=== PATIENT | female | born 1980 | race Caucasian/White ===

== ENCOUNTER 2018-04-23 05:22 | Inpatient (IN) | payer BC ==
[2018-03-23 08:55] VITALS: BMI 36.0
[2018-04-07 10:20] VITALS: BMI 37.0
--- NOTE | 2018-04-07 10:38 | PAT Medication Instructions ---
Service Date Apr 07, 2018. Current Home Medication List Cetirizine (Zyrtec), 10 MG PO QAM Fluoxetine (Prozac), 40 MG PO QAM Montelukast Sodium (Montelukast Sodium), 1 TAB PO HS Medication Instructions For Your Scheduled Surgery - Take the following medications the morning of surgery with a sip of water: Fluoxetine (Prozac), 40 MG PO QAM - Take the following medications as scheduled the night before surgery: Montelukast Sodium (Montelukast Sodium), 1 TAB PO HS Cetirizine (Zyrtec), 10 MG PO QPM If you have any questions please call us at [phone] or [phone] or [phone]
[2018-04-07 11:15] LABS: BASO % 0.8 %; BASO ABS # 0.06 K/uL (0-0.2); EOS % 2.7 %; EOS ABS # 0.21 K/uL (0-0.5); HEMATOCRIT 44.7 % (37-47); HEMOGLOBIN 14.4 g/dL (12.0-16.0); IG# 0.01 K/uL (0.00-0.02); LYMPH % 31.6 %; LYMPH ABS # 2.43 K/uL (1.2-3.4); MEAN CORPUSCULAR HEMOGLOBIN 26.4 pg (25-34); MEAN CORPUSCULAR HGB CONC 32.2 g/dl (32-36); MEAN PLATELET VOLUME 10.3 fL (7.4-10.4); MONO % 4.4 %; MONO ABS # 0.34 K/uL (0.11-0.59); NEUT % 60.4 %; NEUT ABS # 4.65 K/uL (1.4-6.5); PLATELET COUNT 487 K/uL (130-400); RED CELL DISTRIBUTION WIDTH CV 14.4 % (11.5-14.5); RED CELL DISTRIBUTION WIDTH SD 42.6 fL (36.4-46.3)
[2018-04-07 11:31] LABS: PTT PATIENT 26.8 SECONDS (21.0-31.0)
[2018-04-07 12:18] LABS: HEMOGLOBIN A1C 5.4 % (4.5-5.6)
[~2018-04-23] VITALS: Ht 177.8 cm; Wt 118.5 kg
[2018-04-23] VITALS (13 sets, daily range): BP systolic 105–154; BP diastolic 64–98; PULSE 62–88; TEMP 36.4–37.5; O2SAT 96–99; Ht 177.8 cm; Wt 118.5 kg
[~2018-04-23 05:22] MED LIST: CETI10TA84 PO; FLUO40CA8 PO; MONT1TAB5 PO
[2018-04-23] MEDS ORDERED: METR500T PO (05:46)
[2018-04-23] MEDS ORDERED: LACTATED RINGER'S 1000ML 1,000 ML IV SCH ×2 (06:00)
[2018-04-23] MEDS ORDERED: GENTAMICIN IV SCH (06:00)
[2018-04-23] MEDS ORDERED: DEXTROSE 5% IV SCH (06:00)
[2018-04-23] MEDS ORDERED: CLINDAMYCIN 600 MG/54 ML D5W 50 ML IV SCH (06:00)
[2018-04-23] MEDS ORDERED: CLINDAMYCIN IV 900 MG in DEXTROSE 5% 50ML 44 ML IV SCH (06:00)
[2018-04-23] MEDS ORDERED: CTP/1 PO (06:19)
[2018-04-23] MEDS ORDERED: PROPOFOL IV EMULSION 10 MG/ML 20 ML VIAL ONE (06:38)
[2018-04-23] MEDS ORDERED: FENTANYL CITRATE INJ 50 MCG/1 ML 2 ML VIAL ONE (06:38)
[2018-04-23] MEDS ORDERED: ONDANSETRON INJ 2 MG/ML 2 ML VIAL ONE ×2 (06:38→09:51)
[2018-04-23] MEDS ORDERED: DEXAMETHASONE SOD INJ 4 MG/ML VIAL ONE (06:38)
[2018-04-23] MEDS ORDERED: NEOSTIGMINE METHYLSULFATE 5 MG/5 ML SYR ONE (06:38)
[2018-04-23] MEDS ORDERED: LIDOCAINE HCL 2% 2 ML VIAL (20MG/ML) ONE (06:38)
[2018-04-23] MEDS ORDERED: MIDAZOLAM HCL 1 MG/ML 2ML VIAL ONE (06:38)
[2018-04-23] MEDS ORDERED: GLYCOPYRROLATE INJ 0.2 MG/ML VIAL ONE (06:38)
--- NOTE | 2018-04-23 06:52 | History & Physical Bridge Note ---
H&P Re-Evaluation Bridge Note: I have examined the patient, reviewed the History & Physical and in the interval since the performance of the History & Physical I have noted the following changes of clinical significance: No changes noted Cleared by her PCP
[2018-04-23] MEDS ORDERED: LIDOCAINE/EPINEPHRINE 1% 20 ML VIAL ONE (07:31)
[2018-04-23] MEDS ORDERED: BACITRACIN OINT 15 GM TUBE ONE (09:06)
[2018-04-23] MEDS ORDERED: METHYLENE BLUE 0.5% 10 ML VIAL ONE (09:09)
[2018-04-23] MEDS ORDERED: ROCURONIUM BROMIDE 10 MG/ML 5 ML VIAL ONE (09:13)
[2018-04-23] MEDS ORDERED: NALOXONE HCL 0.4 MG/1 ML VIAL/CARP IV PRN (09:15)
[2018-04-23] MEDS ORDERED: FLUMAZENIL 0.1 MG/1 ML 10 ML VIAL IV PRN (09:15)
[2018-04-23] MEDS ORDERED: LABETALOL HCL IV 5 MG/ML 20ML IV PRN (09:15)
[2018-04-23] MEDS ORDERED: EpHEDrine SULFATE INJ 50 MG/ML AMP IV PRN (09:15)
[2018-04-23] MEDS ORDERED: ONDANSETRON INJ 2 MG/ML 2 ML VIAL IV PRN ×2 (09:15→09:30)
[2018-04-23] MEDS ORDERED: PROMETHAZINE HCL INJ 12.5 MG in SODIUM CHLORIDE 0.9% 50ML 50 ML IV PRN (09:15)
[2018-04-23] MEDS ORDERED: ATROPINE SULFATE 0.1 MG/ML 5ML SYR IV PRN (09:15)
--- NOTE | 2018-04-23 09:19 | [facility] Post Operative Brief Note ---
Immediate Operative Summary Operative Date Apr 23, 2018. Pre-Operative Diagnosis Heavy, Prolonged Periods Post-Operative Diagnosis Heavy, Prolonged Periods Procedure(s) Performed Exam Under Anesthesia, Transvaginal Hysterectomy, Cystoscopy, Left Salpingectomy, Dejesus Culdoplasty Surgeon Dr Mcintosh Banking Consultant Surgeon(s) Dr Moon Estimated Blood Loss 200 ml. Findings Consistent with Post-Op Diagnosis Fluids (cc crystalloids) 1700 ml LR Specimens UTERUS, CERVIX, LEFT FALLOPIAN TUBE Drains MARSH 100 ML Anesthesia Type General Complication(s) none Disposition Disposition: Recovery Room / PACU Overlapping Procedure I was present for: ENTIRE CASE
[2018-04-23] MEDS ORDERED: ACETAMINOPHEN IV 100 ML IV PRN (09:30)
[2018-04-23] MEDS ORDERED: MEPERIDINE HCL 50 MG/ML CARP IV PRN ×2 (09:30)
[2018-04-23] MEDS ORDERED: MAGNESIUM HYDROXIDE SUSP 30 ML UDC PO PRN (09:30)
[2018-04-23] MEDS ORDERED: PROMETHAZINE HCL INJ 25 MG in SODIUM CHLORIDE 0.9% 50ML 50 ML IV PRN (09:30)
[2018-04-23] MEDS ORDERED: BISACODYL 10 MG SUPP PR PRN (09:30)
[2018-04-23] MEDS ORDERED: SENNA 8.6 MG TAB PO PRN (09:30)
[2018-04-23] MEDS ORDERED: HYDROmorphone INJ 0.5 MG/0.5 ML SYR ONE ×2 (09:36→10:08)
[2018-04-23] MEDS: HYDROmorphone INJ 1 MG/ML SYR IV PRN ×2 (09:55→10:10)
[2018-04-23] MEDS ORDERED: GENTAMICIN CONSULT ACTIVE PRN (10:00)
[2018-04-23] MEDS ORDERED: ACETAMINOPHEN 1000 MG/100 ML IV IV ONE (10:07)
--- NOTE | 2018-04-23 10:38 | Anesthesiology Progress Note ---
Anesthesia Post Op Note Date & Time Apr 23, 2018 at 10:38 Vital Signs Pain Intensity: 2 Vital Signs Past 12 Hours Date Time Temp Pulse Resp B/P (MAP) Pulse Ox O2 Delivery O2 Flow Rate FiO2 04/23/18 10:25 36.7 74 15 135/96 96 Nasal Cannula 2 04/23/18 10:15 78 13 137/93 96 Nasal Cannula 2 04/23/18 10:05 99 15 121/84 96 Nasal Cannula 2 04/23/18 09:55 82 13 141/90 94 Nasal Cannula 2 04/23/18 09:45 81 13 138/83 94 Oxymask 5 04/23/18 09:35 84 16 122/94 92 Oxymask 5 04/23/18 09:28 36.8 85 16 146/91 97 Oxymask 5 04/23/18 05:59 36.7 88 16 132/97 (109) 98 Room Air Notes Mental Status: alert / awake / arousable, participated in evaluation Pt Amnestic to Procedure: Yes Nausea / Vomiting: adequately controlled Pain: adequately controlled Airway Patency, RR, SpO2: stable & adequate BP & HR: stable & adequate Hydration State: stable & adequate Anesthetic Complications: no major complications apparent
--- NOTE | 2018-04-23 11:14 | OPERATIVE REPORT ---
DATE OF OPERATION: 04/23/2018 PREOPERATIVE DIAGNOSES: Patient is a 37-year-old G2, P2-0-0-2 female with long history of heavy and prolonged menstrual bleeding, not responded to medical therapy as well as medicated IUD, declines endometrial ablation and desires hysterectomy. POSTOPERATIVE DIAGNOSES: Patient is a 37-year-old G2, P2-0-0-2 female with long history of heavy and prolonged menstrual bleeding, not responded to medical therapy as well as medicated IUD, declines ablation and desires hysterectomy. PROCEDURE: Exam under anesthesia, transvaginal hysterectomy, left salpingectomy, Dejesus culdoplasty and cystoscopy. SURGEON: Sarah Mcintosh MD. LOAD DROPPER: Dwayne Moon MD ESTIMATED BLOOD LOSS: 200 mL FLUIDS: 1700 mL of lactated ringer. DRAINS: Bland catheter drained 100 mL of urine. ANESTHESIA: General endotracheal, Dr. Le. COMPLICATIONS: None. FINDINGS: Exam under anesthesia revealed anteverted normal size uterus, nonpalpable adnexa and stage I-II uterine prolapse. DESCRIPTION OF PROCEDURE: The patient was taken to the operating room where general anesthesia was given without difficulty. She was placed in dorsal lithotomy position and prepared and draped in usual sterile fashion. Exam under anesthesia was done without findings. A Bland catheter was inserted into the bladder to drain during surgery and then the weighted speculum was placed in the patient's vagina. Cervix was visualized, grasped with single tooth tenaculum and cervix was injected with 1% lidocaine with epinephrine circumferentially and then the vaginal mucosa around the cervix was incised with the tip of Bovie and Sahu scissors circumferentially Then the vagina was dissected off from the cervix, digitally with the finger and a sponge on it. Then posterior cul-de-sac was identified, grasped with pickups and entered sharply with Metzenbaum scissors and the placement was confirmed digitally and a long weighted speculum was placed in the cul-de-sac and the rest of the extra tissues and vaginal mcuosa around the cervix was dissected off with Metzenbaum scissors and bluntly with the fingers and the sponge on it. The sacrouterine ligaments were identified bilaterally, grasped with Laina clamps, cut and suture ligated x2 on both sides with No:0 Vicryl. The cardinal ligaments were identified, grasped with Laina clamps, cut and suture ligated on both sides with 0 Vicryl and then bladder was dissected off bluntly with the tip fingers and the anterior cul -de-sac was entered without difficulty. The bladder was retracted with retractor. Uterine arteries were identified, grasped with Laina clamps, cut and suture ligated x2 on both sides and then the leafs of the broad ligaments were identified, grasped with handheld LigaSure device, coagulated 3 times and cut. We then continued on the side of the uterus till the cornua with handheld LigaSure device. Excellent hemostasis was achieved. Uterus and cervix was detached and removed from the patient's vagina and sent to pathology. The left ovary and fallopian tube were visible. The left fallopian tube was grasped with Laura clamps and excised with the handheld LigaSure device and sent to pathology and the rest of the vagina and the pedicles were hemostatic. We were not able to visualize the right fallopian tube neither right ovary. Unable to palpte digitally either. The omentum over the bowels were pushed back with a sponge on a stick. Patient was put on Trendelenburg position. We then proceeded with Dejesus suture, #1 Vicryl was placed from posterior vagina brought up into the middle of the cul-de-sac. This was sutured along the cul-de-sac peritoneum and till the right sacrouterine ligament. It was brought back to the middle of the cul-de-sac towards the left of the sacrouterine ligament and then it was brought back to the cul-de-sac and then came out from the vagina and mucosa next to the initial entry site and it was held with hemostat to be tied at the end of the surgery. Then the pedicles were again inspected to be hemostatic and the vaginal mucosa was grasped with Laura clamps. It was closed from left corner to the right in a running locked fashion and excellent hemostasis was achieved. Then we proceeded with a cystoscopy. The Bland catheter was removed. Cystoscopy was done. The bladder mucosa was inspected to be normal without any injury or nor bleeding and the right ureteral opening was visualized and ejecting yellow color urine. Then we looked for the left ureter, unable to find it. Patient has a history of left ureteral reimplantation as a child. I called the urology for recommendations. Right after I called him, we were able to see the second ureter which was superior and medial to the right ureter about 2 cm. So we were able to see 2 urethral openings, both ejecting urine. The I talked to Urologist and he was okay with the findings The cystoscopy was ended and the bladder was drained and placed in a new sterile catheter. The Dejesus suture in the posterior vagina mucosa was tied up in the vagina to elevate the vaginal cuff and it was cut. Then the vagina was packed with bacitracin-soaked vaginal packing and the procedure was ended. The patient tolerated the procedure well. Sponge, lap, needle count was correct x3. Patient was taken off from lithotomy position, extubated successfully and taken to PACU in stable condition. No complications happened. I was and Dr. Moon was present during whole procedure and patient was given gentamicin and clindamycin before procedure. I attest to the content of the Intraoperative Record and any orders documented therein. Any exceptions are noted below. TREMAINE
[2018-04-23] MEDS: IBUPROFEN 600 MG TAB PO PRN (13:53)
[2018-04-23] MEDS: GENTAMICIN IV SCH ×2 (13:56→21:53)
[2018-04-23] MEDS: DEXTROSE 5% IV SCH ×2 (13:56→21:53)
--- NOTE | 2018-04-23 14:52 | OB/GYN Progress Note ---
TOOL AND DIE SUPERVISOR Progress Note Date of Service: Apr 23, 2018. Postop check Patient is seen and examined Feels well, no complaints other than TSE She has h/o migraines and gets TSE if does not have her coffee Pain is under control with meds No CP/ SOB/ Dizziness/ N&V/ VB/ Leg pain Not OOB yet Tolerating clears Explained about the surgery and findings Date Time Temp Pulse Resp B/P (MAP) Pulse Ox O2 Delivery O2 Flow Rate FiO2 04/23/18 14:00 37.5 86 20 154/98 (116) 96 Room Air 04/23/18 13:00 36.8 85 20 147/97 (114) 96 Room Air 04/23/18 12:00 36.8 85 20 139/91 (107) 97 Nasal Cannula 1.0 04/23/18 11:30 36.8 78 18 131/93 (106) 98 Nasal Cannula 2.0 04/23/18 10:35 80 16 146/93 95 Nasal Cannula 2 04/23/18 10:25 36.7 74 15 135/96 96 Nasal Cannula 2 04/23/18 10:15 78 13 137/93 96 Nasal Cannula 2 04/23/18 10:05 99 15 121/84 96 Nasal Cannula 2 04/23/18 09:55 82 13 141/90 94 Nasal Cannula 2 04/23/18 09:45 81 13 138/83 94 Oxymask 5 04/23/18 09:35 84 16 122/94 92 Oxymask 5 04/23/18 09:28 36.8 85 16 146/91 97 Oxymask 5 04/23/18 05:59 36.7 88 16 132/97 (109) 98 Room Air 8-Hour Column 04/23/18 04/24/18 04/24/18 16:00 00:00 08:00 Intake Total 2603 ml Output Total 850 ml Balance 1753 ml 24-Hour Column 04/24/18 08:00 Intake Total 2603 ml Output Total 850 ml Balance 1753 ml PE: General: Alert, orientedx3, NAD CVS: S1S2 RRR Lungs: CTAB Abd: soft, NT, ND, BS+ No VB Ext: NT, no edema, SCD's on AP: 37 yo female s/p EUA, TVH, Left salpingectomy, Mc call culdeplasty, Cystoscopy , pod#0 HT, not on meds Will consult hospitalist Afebrile doing well Continue to routine postop care Encourage PO intake, may ambulate D/C lyon and packing in am Anticipate DC in am
[2018-04-23] MEDS ORDERED: AMLODIPINE BESYLATE 5 MG TAB PO PRN (15:45)
[2018-04-23] MEDS ORDERED: AMLODIPINE BESYLATE 5 MG TAB PO STA (15:56)
[2018-04-23] MEDS: CLINDAMYCIN IV 900 MG in DEXTROSE 5% 100ML 100 ML IV SCH ×2 (15:57→23:11)
[2018-04-23] MEDS ORDERED: CLONIDINE HCL 0.1 MG TAB PO PRN (16:00)
--- NOTE | 2018-04-23 16:56 | Medical Consult ---
Consultation Date of Consultation: Apr 23, 2018. Attending Physician: Canan. Mcintosh MD Reason for Consultation: HTN History of Present Illness This is a 37-year-old white female with significant past medical history of ADD , PCOS, diastolic dysfunction, history of migraine, history of TIA vs complex migraine who presents to [facility] secondary to elective transvaginal hysterectomy secondary to heavy uterine bleeding. Preoperatively patient was noted to have high blood pressure and continued postoperatively with blood pressure 154/98. She tolerate procedure well with EBL of 200ml. She follows Dr. Pabon in outpatient setting and over the past month has been noted to have elevated BP. She had ECG and echo for pre-operative clearance. ECG showed no acute abnormality and Echo revealed EF 60% with mild LVH. Prior to transvaginal hysterectomy she was treated with IUD and subsequent oral hormones in hope to lessen bleeding. This was felt to be cause of HTN and was discontinued. Also treated with Concerta for ADD in which this was discontinued as well. She denies any NSAID use, tobacco use. She used to drink occasional wine however ever since having elevated blood pressure she stopped alcohol use. Caffeine use is down to 1 cup of coffee a day prior it was 2-3. She tries to eat diet full of fruits and vegetables. Unfortunately over the past month she also broke her left foot in which she was in a cam boot; therefore her mobility has been limited as well as her cooking. She states they have been eating out a lot more frequently but does not add any added salt. Postoperatively had a headache and this was relieved with cup of caffeinated coffee. She denies fever , chills, sweats, lightheadedness, dizziness, change in hearing, change in vision, tinnitus, chest pain, palpitations, shortness of breath, nausea vomiting , diarrhea. In the past she was treated with clonidine for psychiatric issue in this because somnolence. Over the past month she has been monitoring her blood pressure in which systolically it has been ranging 140-150, diastolically 100. She denies any family history of cardiac disease, hypertension, hyperlipidemia, stroke. Her mother and father both alive, father suffers from glaucoma otherwise both are alive and well. Has 1 sister with psychiatric illness but no other medical problems. We have been asked to see patient in consultation for hypertension. Past Medical/Surgical History As per HPI Surgical Hx includes L ureteral re-implant at age 8 Had 2 children natural child Family History As per HPI Social History Smoking Status: Never Smoker Smokeless Tobacco Use: No Alcohol Use: Used to drink wine, has stopped for the past 1 month secondary to elevated blood pressure Drug Use: none Marital Status: Housing Status: lives with family Allergies Coded Allergies: Amoxicillin (Unverified Allergy, Unknown, ANAPHYLAXIS, 04/28/18) Current Inpatient Medications Current Inpatient Medications Medications (Trade) Dose Ordered Sig/Oscar Route Start Time Stop Time Status Last Admin Dose Admin Lactated Ringer's 1,000 ml @ 125 mls/hr Q8H IV 04/23/18 06:00 04/23/18 18:00 Gentamicin Sulfate 178 mg/ Dextrose 104.45 ml @ 100 mls/ hr PREOP IV 04/23/18 06:00 04/23/18 18:00 04/23/18 05:52 100 MLS/HR Clindamycin Phosphate 900 mg/ Dextrose 50 ml @ 100 mls/hr PREOP IV 04/23/18 06:00 04/23/18 18:00 04/23/18 07:00 100 MLS/HR Lactated Ringer's 1,000 ml @ 15 mls/hr Q24H IV 04/23/18 06:00 04/23/18 18:00 04/23/18 05:50 15 MLS/HR Meperidine HCl (Demerol Inj) 50 mg Q4H PRN IV 04/23/18 09:30 05/07/18 09:29 Meperidine HCl (Demerol Inj) 75 mg Q4H PRN IV 04/23/18 09:30 05/07/18 09:29 Oxycodone/ Acetaminophen (Percocet 5-325mg Tab) 1 tab for pain scale 1-5 2 t... Q4H PRN PO 04/23/18 09:30 05/07/18 09:29 Ibuprofen (Motrin Tab) 600 mg Q4H PRN PO 04/23/18 09:30 05/23/18 09:29 04/23/18 13:53 600 MG Ondansetron HCl (Zofran Inj) 4 mg Q4H PRN IV 04/23/18 09:30 05/23/18 09:29 Promethazine HCl 25 mg/Sodium Chloride 51 ml @ 204 mls/hr Q4H PRN IV 04/23/18 09:30 05/23/18 09:29 Bisacodyl (Dulcolax Supp) 10 mg DAILY PRN FL 04/23/18 09:30 05/23/18 09:29 Magnesium Hydroxide (Milk Of Magnesia Susp) 30 ml HS PRN PO 04/23/18 09:30 05/23/18 09:29 Lactated Ringer's 1,000 ml @ 125 mls/hr Q8H IV 04/23/18 12:00 05/23/18 11:59 Senna (Senokot Tab) 17.2 mg HS PRN PO 04/23/18 09:30 05/23/18 09:29 Acetaminophen 100 ml @ 400 mls/hr Q8H PRN IV 04/23/18 09:30 05/23/18 09:29 Gentamicin Sulfate 180 mg/ Dextrose 104.5 ml @ 100 mls/hr Q8H IV 04/23/18 14:00 04/24/18 13:59 04/23/18 13:56 100 MLS/HR Miscellaneous Information (Consult) 1 ea UD PRN N/A 04/23/18 10:00 05/23/18 09:59 Clindamycin Phosphate 900 mg/ Dextrose 106 ml @ 100 mls/hr Q8H IV 04/23/18 15:00 04/24/18 14:59 04/23/18 15:57 100 MLS/HR Amlodipine Besylate (Norvasc Tab) 2.5 mg QAM PO 04/24/18 09:00 05/24/18 08:59 Clonidine HCl (Catapres Tab) 0.1 mg Q6H PRN PO 04/23/18 16:00 05/23/18 15:59 Review of Systems As noted per HPI, 10 systems reviewed and negative unless noted above. Physical Exam Date Time Temp Pulse Resp B/P (MAP) Pulse Ox O2 Delivery O2 Flow Rate FiO2 04/23/18 14:00 37.5 86 20 154/98 (116) 96 Room Air 04/23/18 13:00 36.8 85 20 147/97 (114) 96 Room Air 04/23/18 12:30 96 Room Air 04/23/18 12:00 36.8 85 20 139/91 (107) 97 Nasal Cannula 1.0 04/23/18 11:30 98 Nasal Cannula 1.0 04/23/18 11:30 36.8 78 18 131/93 (106) 98 Nasal Cannula 2.0 04/23/18 11:00 97 Nasal Cannula 2.0 04/23/18 11:00 37.1 79 18 143/96 (112) 97 Nasal Cannula 2.0 04/23/18 11:00 97 Nasal Cannula 2.0 04/23/18 10:35 80 16 146/93 95 Nasal Cannula 2 04/23/18 10:25 36.7 74 15 135/96 96 Nasal Cannula 2 04/23/18 10:15 78 13 137/93 96 Nasal Cannula 2 04/23/18 10:05 99 15 121/84 96 Nasal Cannula 2 04/23/18 09:55 82 13 141/90 94 Nasal Cannula 2 04/23/18 09:45 81 13 138/83 94 Oxymask 5 04/23/18 09:35 84 16 122/94 92 Oxymask 5 04/23/18 09:28 36.8 85 16 146/91 97 Oxymask 5 04/23/18 05:59 36.7 88 16 132/97 (109) 98 Room Air General Appearance: WD/WN, no apparent distress, + obese Head: normocephalic, atraumatic Eyes: normal inspection, PERRL, EOMI, sclerae normal ENT: normal ENT inspection, hearing grossly normal, + pertinent finding ( Mucous membranes moist) Neck: supple, no adenopathy, thyroid normal, no JVD Respiratory/Chest: chest non-tender, lungs clear, normal breath sounds, no respiratory distress, no accessory muscle use Cardiovascular: regular rate, rhythm, no edema, no gallop, no JVD, no murmur, normal peripheral pulses Abdomen/GI: normal bowel sounds, non tender, soft, + distended (Secondary to obesity) Extremities/Musculoskelatal: normal inspection, no calf tenderness, normal capillary refill, no pedal edema Neurologic/Psych: alert, normal mood/affect, oriented x 3 Skin: normal color, warm/dry, no rash Laboratory Results Last 24 Hours Test 04/23/18 05:38 Bedside Urine Test NEG Assessment & Plan This is a 37-year-old white female with significant past medical history of ADD , PCOS, diastolic dysfunction, history of migraine, history of TIA who presents to [facility] secondary to elective transvaginal hysterectomy secondary to heavy uterine bleeding performed by Dr. Castro. We have been consulted for hypertension management. For the past month patient has been suffering from elevated blood pressure. She has been monitoring her blood pressure in which systolically it has been ranging 140-150, diastolically 100. She denies any family history of cardiac disease, hypertension, hyperlipidemia, stroke. S/P transvaginal hysterectomy, Cystoscopy, Left Salpingectomy, Dejesus Culdoplasty by Dr. Castro POD #0 -pain/wound management per MACHINE HOSTLER -VTE prophylaxis per MACHINE HOSTLER Hypertension -risk factors include obesity, diet, sedentary lifestyle; however need to r/o secondary HTN including JOSE MIGUEL. Other possible etiology could be Obstructive/ Central sleep apnea -Order Renal u/S -check ECG -repeat BMP, CBC in a.m -Initiate amlodipine 2.5mg po daily, uptitrate as necessary -[place] BP is <140/90 -clonidine 0.1mg po q6hr prn for SBP >160 DBP >100 -recommend diet and life style modifications once cleared from MACHINE HOSTLER to resume activity -recommend Low Sodium, Heart Healthy diet once upgraded from clear liquid diet Diastolic Dysfunction -recommend strict bp control <140/90 ADD -off concerta hx of TIA? vs. Complex Migraine -noted in records, patient states had episode in past in which she took imitrex for migraine and developed Left sided numbness which resolved in <24 hrs. -need better blood pressure control -would recommend baby ASA daily once cleared by MACHINE HOSTLER Patient will be followed by Dr. Moreno Thank you for this consultation. We will follow the patient with you during their hospital stay. You can reach a member of the [facility]03 via pager @ . ATTENDING ADDENDUM patient seen and examined by myself chart reviewed care coordinated with TREVON Jauregui agree with assessment and plan above delayed entry date of service as noted above care coordinated with TREVON Jauregui please refer to her notes for full details, I agree with her notes patient seen and examined, records reviewed by myself as well on exam, patient seen resting in bed, comfortable in good spirits states she feels fine overall has pain over the surgical site but improving with pain meds no other symptoms VS noted and reviewed oriented x 2 , not in distress, speaks in sentences with no effort nor accessory muscle use normal rate, regular rhythm, no murmurs clear breath sounds bilaterally non distended, soft, mild tenderness no bipedal edema, erythema, warmth no neuro deficits Hg 13 Crea 1.14 ASSESSMENT/PLAN> HYPERTENSION check renal US to r/o renal artery stenosis start with Amlodipine 5mg monitor S/P HYSTERECTOMY monitor Hg other diagnoses and plan of care as per TREVON Jauregui's notes Jorge A Moreno MD
[2018-04-23] MEDS ORDERED: MTR600X PO (18:54)
[2018-04-23] MEDS ORDERED: NRV5 PO (18:54)
[2018-04-23] MEDS ORDERED: OXYC-57 PO (18:54)
[2018-04-23] MEDS: LACTATED RINGER'S 1000ML 1,000 ML IV SCH (19:01)
--- NOTE | 2018-04-23 19:05 | Discharge Instructions ---
Discharge Instructions Date of Service Apr 23, 2018. Admission Reason for Admission: Heavy Periods Not Responding To Menstrual Therapy Discharge Discharge Diagnosis / Problem: Transvaginal hysterectomy, left salpingectomy, cystoscopy Discharge Goals Goal(s): Routine recovery after surgery Activity Recommendations Activity Limitations: as noted below Lifting Limitations: no more than 10 pounds (2 weeks ), no more than 25 pounds (6 weeks) Exercise/Sports Limitations: until after follow-up appointment May Resume Sexual Activity: after follow-up appointment Driving or Machine Use: ACTIVITY RECOMMENDATIONS: * Rest the first 2-3 days. You should be back to your normal by week 2-4. * No heavy lifting for 2 weeks. * No intercourse, tampons or douching for 6-8 weeks. * You may shower the next day. * Do not drive anytime that you are taking narcotic pain medicines. RETURN TO SCHOOL/WORK: * May return to school or work after 2-4 weeks. DIET: Nausea may occur in the immediate post-operative period. If so, take clear liquids such as tea, bouillon, apple juice until all nausea has subsided, then resume usual diet. MEDICATIONS: Resume previous medications unless instructed otherwise by your surgeon. Ibuprofen 200mg 2-3 tablets every 4-6 hours as needed -- OR -- Aleve 2 tablets every 8-12 hours as needed for post-operative discomfort OR Use prescribed medications Medications are over the counter. Tylenol may be used if above medications are contraindicated or not preferred. Medication should be taken with food or milk. Do not take on an empty stomach. SPECIAL CARE INSTRUCTIONS: * Check temperature twice daily for one week. report any elevation over 100. 4 degrees. * You may experience some vagina spotting and/or bleeding. This is normal for 2 weeks and should not be heavier than a normal period. If it is unusual in amount, call your physician. * Post-operative discomfort may consist of a sore throat, a "bloated" feeling and pain in the shoulders. these are normal symptoms, which usually only last for 2-3 days. * FOLLOW UP VISIT: Call your doctor's office for a post-operative 2 and 6 weeks visit if not already scheduled. . Current Hospital Diet Patient's current hospital diet: Clear Liquid Diet Discharge Diet Recommended Diet: Regular Diet Procedures Procedures Performed: Exam Under Anesthesia, Transvaginal Hysterectomy, Cystoscopy, Left Salpingectomy, Dejesus Culdoplasty Pending Studies Studies pending at discharge: no Laboratory Results Hemoglobin A1c Test 04/07/18 10:51 Range/Units Estimated Average Glucose 108 mg/dl Hemoglobin A1c 5.4 4.5-5.6 % Medical Emergencies . Who to Call and When: Medical Emergencies: If at any time you feel your situation is an emergency, please call 911 immediately. . Non-Emergent Contact Non-Emergency issues call your: Surgeon Call Non-Emergent contact if: you have a fever, temperature is above 100.5, your pain is not controlled, your pain is worsening, your pain is unusual for you, wound has increased drainage, you have any medication questions . . "Provider Documentation" section prepared by Sarah Mcintosh. .
[2018-04-23 19:23] LABS: HEMOGLOBIN 13.6 g/dL (12.0-16.0)
[2018-04-24] MEDS: OXYCODONE/ACETAMINOPHEN 5-325 TAB PO PRN ×2 (02:48→10:15)
[2018-04-24 03:00] VITALS: BP 117/80; PULSE 85; TEMP 36.9; O2SAT 98
[2018-04-24] MEDS: LACTATED RINGER'S 1000ML 1,000 ML IV SCH (05:11)
[2018-04-24] MEDS: GENTAMICIN IV SCH (05:29)
[2018-04-24] MEDS: DEXTROSE 5% IV SCH (05:29)
--- NOTE | 2018-04-24 06:43 | DIAGNOSTIC IMAGING REPORT ---
RENAL ARTERY DUPLEX ULTRASOUND CLINICAL HISTORY: Severe hypertension COMPARISON STUDY: No previous studies for comparison. FINDINGS: Grayscale, color-flow, and spectral waveform analysis was performed. The right kidney measured 10.8 cm in length. The left kidney measures 12.8 cm in length. The peak systolic velocity within the right renal artery was 117 cm/s. The peak systolic velocity within the left renal artery was 93 cm/s. The peak systolic velocity of the aorta was 125 cm/s. Both renal veins were patent. IMPRESSION: 1. No evidence of renal artery stenosis. Electronically signed by: Albert Can M.D. 04/24/2018 6:42 AM Dictated Date/Time: 04/24/2018 6:41 AM
[2018-04-24] MEDS ORDERED: ONDA4TAB46 PO (06:45)
--- NOTE | 2018-04-24 06:50 | OB/GYN Progress Note ---
[employer] Progress Note Date of Service: Apr 24, 2018. Patient is seen and examined. She feels well, no complaints. Pain is under control with oral meds. Ambulating without dizziness Has not Voided yet, catheter was removed Tolerating clears and crackers with out N&V No Vaginal Bleeding No fever/ chills/ CP/ SOB/ N&V/ Leg pain Date Time Temp Pulse Resp B/P (MAP) Pulse Ox O2 Delivery O2 Flow Rate FiO2 04/24/18 03:00 36.9 85 18 117/80 (92) 98 Room Air 04/23/18 23:30 76 18 123/78 (93) 97 Room Air 04/23/18 23:30 97 Room Air 04/23/18 22:00 96 Room Air 04/23/18 16:05 78 22 131/74 (93) 97 Room Air 04/23/18 16:05 97 Room Air 04/23/18 14:00 37.5 86 20 154/98 (116) 96 Room Air 04/23/18 13:00 36.8 85 20 147/97 (114) 96 Room Air 04/23/18 12:30 96 Room Air 04/23/18 12:00 36.8 85 20 139/91 (107) 97 Nasal Cannula 1.0 04/23/18 11:30 98 Nasal Cannula 1.0 04/23/18 11:30 36.8 78 18 131/93 (106) 98 Nasal Cannula 2.0 04/23/18 11:00 97 Nasal Cannula 2.0 04/23/18 11:00 37.1 79 18 143/96 (112) 97 Nasal Cannula 2.0 04/23/18 11:00 97 Nasal Cannula 2.0 04/23/18 10:35 80 16 146/93 95 Nasal Cannula 2 04/23/18 10:25 36.7 74 15 135/96 96 Nasal Cannula 2 04/23/18 10:15 78 13 137/93 96 Nasal Cannula 2 04/23/18 10:05 99 15 121/84 96 Nasal Cannula 2 04/23/18 09:55 82 13 141/90 94 Nasal Cannula 2 04/23/18 09:45 81 13 138/83 94 Oxymask 5 04/23/18 09:35 84 16 122/94 92 Oxymask 5 04/23/18 09:28 36.8 85 16 146/91 97 Oxymask 5 Last 24 Hours Test 04/23/18 19:08 04/24/18 04:44 Hemoglobin 13.6 g/dL Hematocrit 41.0 % PE: General: Alert, orientedx3, NAD CVS: S1S2 RRR Lungs; CTAB Abd: soft, NT, ND, BS+, fundus firm, below Umbilicus Perineum intact, no VB, packing was removed Ext; NT, no edema AP: 37 yo s/p TVH, Lt salpingectomy, Mc call culdeplasy, cystoscopy, pod# 1 VSS Afebrile doing well Medicine consult appreciated Continue routine postop care Encourage ambulation, PO intake All questions were answered Instructions were given when to call D/C home after void, breakfast and medicine rounds
[2018-04-24] MEDS ORDERED: BACITRACIN OINT 15 GM TUBE EXT SCH (07:00)
[2018-04-24] MEDS: CLINDAMYCIN IV 900 MG in DEXTROSE 5% 100ML 100 ML IV SCH (07:24)
[2018-04-24] MEDS: IBUPROFEN 600 MG TAB PO PRN (07:33)
[2018-04-24 07:34] VITALS: BP 152/92; PULSE 82; TEMP 36.9; O2SAT 100
[2018-04-24 07:46] VITALS: BP 152/92; PULSE 82; TEMP 36.9; O2SAT 100
[2018-04-24] MEDS ORDERED: AMLODIPINE BESYLATE 5 MG TAB PO SCH (09:00)
[2018-04-24 09:33] VITALS: BP 113/68; PULSE 81
[2018-04-24 10:30] LABS: BASO % 0.2 %; BASO ABS # 0.02 K/uL (0-0.2); EOS % 0.2 %; EOS ABS # 0.02 K/uL (0-0.5); HEMATOCRIT 41.4 % (37-47); HEMOGLOBIN 13.6 g/dL (12.0-16.0); IG# 0.06 K/uL (0.00-0.02); LYMPH % 14.2 %; LYMPH ABS # 1.68 K/uL (1.2-3.4); MEAN CELL VOLUME 79.9 fL (80-100); MEAN CORPUSCULAR HEMOGLOBIN 26.3 pg (25-34); MEAN CORPUSCULAR HGB CONC 32.9 g/dl (32-36); MEAN PLATELET VOLUME 10.8 fL (7.4-10.4); MONO % 5.6 %; MONO ABS # 0.66 K/uL (0.11-0.59); NEUT % 79.3 %; NEUT ABS # 9.39 K/uL (1.4-6.5); PLATELET COUNT 378 K/uL (130-400); RED CELL DISTRIBUTION WIDTH CV 14.4 % (11.5-14.5); WHITE BLOOD COUNT 11.83 K/uL (4.8-10.8)
[2018-04-24 10:44] LABS: CALCIUM 8.4 mg/dl (8.5-10.1); CREATININE 1.14 mg/dl (0.60-1.20)
--- NOTE | 2018-04-24 11:03 | Progress Note ---
Medicine Progress Note Date & Time of Visit: Apr 24, 2018 at 10:57. Subjective seen resting in bed, comfortable states she had pain in the surgical site this morning, this is improving no headache, chest pain, dyspnea, dizziness, weakness ambulating with no problems denies other symptoms Objective Last 8 Hrs Date Time Temp Pulse Resp B/P (MAP) Pulse Ox O2 Delivery O2 Flow Rate FiO2 04/24/18 09:33 81 113/68 (83) 04/24/18 07:46 36.9 82 16 152/92 (112) 100 Room Air 04/24/18 07:45 Room Air 04/24/18 07:34 36.9 82 16 152/92 (112) 100 Room Air 04/24/18 07:34 36.9 82 16 152/92 (112) 100 Room Air 04/24/18 03:00 36.9 85 18 117/80 (92) 98 Room Air Physical Exam: General- oriented x 3, not in distress, speaks in sentences with no effort Head- atraumatic Eyes- anicteric ENT- oropharynx clear Neck- supple, no JVD Lungs- clear to auscultation b/l Heart- regular rhythm; no murmur,normal rate Abdomen- non distended Extremities- no pretibial edema, no calf tenderness Neuro- alert, oriented x 3; no gross focal deficits Skin- warm & dry Laboratory Results: Last 24 Hours Test 04/23/18 19:08 04/24/18 09:53 Hemoglobin 13.6 g/dL 13.6 g/dL Hematocrit 41.0 % 41.4 % White Blood Count 11.83 K/uL Red Blood Count 5.18 M/uL Mean Corpuscular Volume 79.9 fL Mean Corpuscular Hemoglobin 26.3 pg Mean Corpuscular Hemoglobin Concent 32.9 g/dl Platelet Count 378 K/uL Mean Platelet Volume 10.8 fL Neutrophils (%) (Auto) 79.3 % Lymphocytes (%) (Auto) 14.2 % Monocytes (%) (Auto) 5.6 % Eosinophils (%) (Auto) 0.2 % Basophils (%) (Auto) 0.2 % Neutrophils # (Auto) 9.39 K/uL Lymphocytes # (Auto) 1.68 K/uL Monocytes # (Auto) 0.66 K/uL Eosinophils # (Auto) 0.02 K/uL Basophils # (Auto) 0.02 K/uL RDW Standard Deviation 42.0 fL RDW Coefficient of Variation 14.4 % Immature Granulocyte % (Auto) 0.5 % Immature Granulocyte # (Auto) 0.06 K/uL Sodium Level 139 mmol/L Potassium Level 4.0 mmol/L Chloride Level 104 mmol/L Carbon Dioxide Level 23 mmol/L Anion Gap 11.0 mmol/L Blood Urea Nitrogen 9 mg/dl Creatinine 1.14 mg/dl Est Creatinine Clear Calc Drug Dose 95.3 ml/min Estimated GFR () 71.6 Estimated GFR (Non- 61.8 BUN/Creatinine Ratio 8.2 Random Glucose 106 mg/dl Calcium Level 8.4 mg/dl Chemistry Specimen Hemolysis Assessment & Plan S/P transvaginal hysterectomy, Cystoscopy, Left Salpingectomy, Dejesus Culdoplasty by Dr. Castro POD #1 -pain/wound management per [employer] -VTE prophylaxis per [employer] Hypertension -risk factors include obesity, diet, sedentary lifestyle; however need to r/o secondary HTN including JOSE MIGUEL. Other possible etiology could be Obstructive/ Central sleep apnea - Renal u/S: no renal artery stenosis - blood pressure improved now as low as systolic 112 - anticipate BP will continue to improve off hormones, and pain subsides - recommend to hold off on any blood pressure medications at this time -recommend diet and life style modifications once cleared from [employer] to resume activity -recommend Low Sodium, Heart Healthy diet once upgraded from clear liquid diet ff up with PCP Dr. Pabon on 04/27/18 discussed with patient ADD -off concerta hx of TIA? vs. Complex Migraine -noted in records, patient states had episode in past in which she took imitrex for migraine and developed Left sided numbness which resolved in <24 hrs. - continue to monitor as outpatient Current Inpatient Medications: Current Inpatient Medications Medications (Trade) Dose Ordered Sig/Oscar Route Start Time Stop Time Status Last Admin Dose Admin Meperidine HCl (Demerol Inj) 50 mg Q4H PRN IV 04/23/18 09:30 05/07/18 09:29 04/23/18 20:20 50 MG Meperidine HCl (Demerol Inj) 75 mg Q4H PRN IV 04/23/18 09:30 05/07/18 09:29 Oxycodone/ Acetaminophen (Percocet 5-325mg Tab) 1 tab for pain scale 1-5 2 t... Q4H PRN PO 04/23/18 09:30 05/07/18 09:29 04/24/18 10:15 1 TAB Ibuprofen (Motrin Tab) 600 mg Q4H PRN PO 04/23/18 09:30 05/23/18 09:29 04/24/18 07:33 600 MG Ondansetron HCl (Zofran Inj) 4 mg Q4H PRN IV 04/23/18 09:30 05/23/18 09:29 Promethazine HCl 25 mg/Sodium Chloride 51 ml @ 204 mls/hr Q4H PRN IV 04/23/18 09:30 05/23/18 09:29 Bisacodyl (Dulcolax Supp) 10 mg DAILY PRN CA 04/23/18 09:30 05/23/18 09:29 Magnesium Hydroxide (Milk Of Magnesia Susp) 30 ml HS PRN PO 04/23/18 09:30 05/23/18 09:29 Lactated Ringer's 1,000 ml @ 125 mls/hr Q8H IV 04/23/18 12:00 05/23/18 11:59 04/24/18 05:11 125 MLS/HR Senna (Senokot Tab) 17.2 mg HS PRN PO 04/23/18 09:30 05/23/18 09:29 Acetaminophen 100 ml @ 400 mls/hr Q8H PRN IV 04/23/18 09:30 05/23/18 09:29 04/23/18 18:29 400 MLS/HR Gentamicin Sulfate 180 mg/ Dextrose 104.5 ml @ 100 mls/hr Q8H IV 04/23/18 14:00 04/24/18 13:59 04/24/18 05:29 100 MLS/HR Miscellaneous Information (Consult) 1 ea UD PRN N/A 04/23/18 10:00 05/23/18 09:59 Clindamycin Phosphate 900 mg/ Dextrose 106 ml @ 100 mls/hr Q8H IV 04/23/18 15:00 04/24/18 14:59 04/24/18 07:24 100 MLS/HR Clonidine HCl (Catapres Tab) 0.1 mg Q6H PRN PO 04/23/18 16:00 05/23/18 15:59 Bacitracin (Bacitracin Oint) 1 appln BID EXT 04/24/18 07:00 05/24/18 06:59 04/24/18 09:06 1 APPLN
[2018-04-24 11:29] VITALS: BP 113/68; PULSE 81; TEMP 36.9; O2SAT 100
[2018-04-28] MEDS ORDERED: AMLO2.5T PO (10:21)
[2018-04-28] MEDS ORDERED: LORA-741 PO (15:42)
[2018-04-28] MEDS ORDERED: ALBU18002 INH (15:43)
== END 2018-04-24 11:30 | disposition home or self-care (01) | DRG 743 ==
LOC: C.ACU 05:22 → C.MS4N 05:44
PROVIDERS: ADMIT Obstetrics & Gynecology; ATTEND Obstetrics & Gynecology
PROC: 0UTC7ZZ Resection of Cervix, Via Natural or Artificial Opening (ICD-10-PCS; principal; 2018-04-23 07:00)
PROC: 0UT67ZZ Resection of Left Fallopian Tube, Via Natural or Artificial Opening (ICD-10-PCS; principal; 2018-04-23 07:00)
PROC: 0TJB8ZZ Inspection of Bladder, Via Natural or Artificial Opening Endoscopic (ICD-10-PCS; principal; 2018-04-23 07:00)
PROC: 0UT97ZZ Resection of Uterus, Via Natural or Artificial Opening (ICD-10-PCS; principal; 2018-04-23 07:00)
DX: N92.4 Excessive bleeding in the premenopausal period (principal); F90.9 Attention-deficit hyperactivity disorder, unspecified type; E28.2 Polycystic ovarian syndrome; I50.9 Heart failure, unspecified; I11.0 Hypertensive heart disease with heart failure; Z86.73 Personal history of transient ischemic attack (TIA), and cerebral infarction without residual deficits